=== PATIENT | male | born 1965 | race African-American/Black ===

== ENCOUNTER 2020-07-06 11:56 | Emergency (ER) | payer MEDICARE, OTHER ==
[~2020-07-06] VITALS: Ht 177.8 cm; Wt 75.7 kg
[2020-07-06] MEDS ORDERED: methylPREDNISolone SOD SUCC 125 MG/2 ML VL IV ONE (12:30)
[2020-07-06 12:48] LABS: Lymphocytes # (auto) 1.3 10 ^3/uL (0.4-5.4)
[2020-07-06 13:02] LABS: Basophils # (auto) 0 10 ^3/uL (0-0.2); Basophils % (auto) 0.6 % (0.0-2.0); Eosinophils # (auto) 0.1 10 ^3/uL (0-0.8); Eosinophils % (auto) 1.9 % (0.0-7.0); Hematocrit 51.5 % (41.0-53.0); Hemoglobin 17.4 g/dL (13.5-17.5); Lymphocytes % (auto) 26.8 % (10.0-50.0); Mean Corpuscular Hemoglobin 32.3 pg (28.0-32.0); Mean Corpuscular Hgb Conc. 33.8 g/dL (32.0-36.0); Mean Corpuscular Volume 95.5 fL (80.0-100.0); Monocytes # (auto) 0.5 10 ^3/uL (0-1.3); Monocytes % (auto) 10.3 % (0.0-12.0); Neutrophils % (auto) 60.4 % (37.0-80.0); Platelet Count (auto) 173 10^3/uL (140-450); Red Blood Cells 5.39 10^6/uL (4.5-5.90); Red Cell Distribution Width 13.6 % (11.8-14.3)
[2020-07-06 13:07] LABS: Nucleated Red Blood Cells % 0.2 %
[2020-07-06 13:25] LABS: Albumin 3.9 g/dL (3.4-5.0); Anion Gap 4 (5-15); Blood Urea Nitrogen 9 mg/dL (7-18); Calcium 9.1 mg/dL (8.5-10.1); Carbon Dioxide 24 mmol/L (21-32); Chloride 110 mmol/L (98-107); Glucose 82 mg/dL (74-106); Potassium 4.2 mmol/L (3.5-5.1); Sodium 138 mmol/L (136-145)
[2020-07-06 13:27] LABS: Alanine Aminotransferase 22 U/L (16-61); Aspartate Aminotransferase 13 U/L (15-37); BUN/Creatinine Ratio 8.5; GFR African American 93 mL/min; GFR Non-African American 77 mL/min
[2020-07-06 13:29] LABS: Alkaline Phosphatase 90 U/L (45-117); Bilirubin, Total 0.4 mg/dL (0.2-1.0); Total Protein 8.2 g/dL (6.4-8.2)
[2020-07-06 15:37] VITALS: BP 151/85
== END 2020-07-06 15:50 | disposition home or self-care (01) ==
LOC: ER 11:56
DX: J20.9 Acute bronchitis, unspecified (principal); Z20.828 Contact with and (suspected) exposure to other viral communicable diseases
CPT/HCPCS: 36415; 71045; 80053; 82728; 83605; 84484; 85025; 85379; 86141; 87040; 87426; 93005; 96374; 99285; J2930

== ENCOUNTER 2021-03-12 15:28 | Emergency (ER) | payer MEDICARE, OTHER ==
[~2021-03-12] VITALS: Ht 180.3 cm; Wt 74.8 kg
[2021-03-12 15:29] VITALS: BP 127/73
[2021-03-12 18:47] LABS: Basophils # (auto) 0 10 ^3/uL (0-0.2); Basophils % (auto) 0.6 % (0.0-2.0); Eosinophils # (auto) 0 10 ^3/uL (0-0.8); Eosinophils % (auto) 0.8 % (0.0-7.0); Hematocrit 44.6 % (41.0-53.0); Lymphocytes # (auto) 1.8 10 ^3/uL (0.4-5.4); Lymphocytes % (auto) 34.6 % (10.0-50.0); Mean Corpuscular Hemoglobin 32.9 pg (28.0-32.0); Mean Corpuscular Hgb Conc. 33.6 g/dL (32.0-36.0); Monocytes # (auto) 0.5 10 ^3/uL (0-1.3); Monocytes % (auto) 10.4 % (0.0-12.0); Neutrophils # (auto) 2.8 10 ^3/uL (1.6-8.6); Neutrophils % (auto) 53.6 % (37.0-80.0); Nucleated Red Blood Cells % 0.1 %; Red Blood Cells 4.55 10^6/uL (4.5-5.90); Red Cell Distribution Width 13.1 % (11.8-14.3); White Blood Cell 5.2 10^3/uL (4.4-10.8)
[2021-03-12 19:02] LABS: Albumin 3.7 g/dL (3.4-5.0); Anion Gap 5 (5-15); Blood Urea Nitrogen 14 mg/dL (7-18); Calcium 9.3 mg/dL (8.5-10.1); Carbon Dioxide 25 mmol/L (21-32); Chloride 106 mmol/L (98-107); Glucose 82 mg/dL (74-106); Potassium 4.7 mmol/L (3.5-5.1); Sodium 136 mmol/L (136-145)
[2021-03-12 19:06] LABS: Alanine Aminotransferase 31 U/L (16-61); Alkaline Phosphatase 71 U/L (45-117); Aspartate Aminotransferase 17 U/L (15-37); BUN/Creatinine Ratio 12.7; Bilirubin, Total 0.3 mg/dL (0.2-1.0); GFR African American 89 mL/min; GFR Non-African American 74 mL/min; Total Protein 7.8 g/dL (6.4-8.2)
[2021-03-12] MEDS ORDERED: ONDANSETRON ODT 4 MG TAB PO ONE (20:00)
== END 2021-03-12 21:36 | disposition left against medical advice (07) ==
LOC: ER 15:28
DX: R10.9 Unspecified abdominal pain (principal); K92.1 Melena; Z53.21 Procedure and treatment not carried out due to patient leaving prior to being seen by health care provider
CPT/HCPCS: 36415; 80053; 84484; 85025; Q0162; 93005

== ENCOUNTER 2022-01-23 12:03 | Inpatient (IN) | payer MEDICARE, OTHER ==
[~2022-01-23] VITALS: Ht 180.3 cm; Wt 68.0 kg
[2022-01-23 13:04] LABS: Basophils # (auto) 0.1 10 ^3/uL (0-0.2); Basophils % (auto) 1.1 % (0.0-2.0); Eosinophils # (auto) 0 10 ^3/uL (0-0.8); Eosinophils % (auto) 0.6 % (0.0-7.0); Hematocrit 47.2 % (41.0-53.0); Hemoglobin 15.6 g/dL (13.5-17.5); Lymphocytes # (auto) 1.3 10 ^3/uL (0.4-5.4); Lymphocytes % (auto) 27.1 % (10.0-50.0); Mean Corpuscular Hemoglobin 31.4 pg (28.0-32.0); Mean Corpuscular Hgb Conc. 33.1 g/dL (32.0-36.0); Mean Corpuscular Volume 94.8 fL (80.0-100.0); Monocytes # (auto) 0.3 10 ^3/uL (0-1.3); Neutrophils % (auto) 64.2 % (37.0-80.0); Nucleated Red Blood Cells % 0.2 %; Red Blood Cells 4.98 10^6/uL (4.5-5.90); Red Cell Distribution Width 14.2 % (11.8-14.3); White Blood Cell 4.7 10^3/uL (4.4-10.8)
[2022-01-23 13:18] LABS: Albumin 4.3 g/dL (3.4-5.0); Calcium 9.3 mg/dL (8.5-10.1); Potassium 4.3 mmol/L (3.5-5.1)
[2022-01-23 13:21] LABS: BUN/Creatinine Ratio 10.2; Bilirubin, Total 0.7 mg/dL (0.2-1.0); Total Protein 8.2 g/dL (6.4-8.2)
[2022-01-23] MEDS ORDERED: IPRATROPIUM BROM 0.5 MG/2.5ML INH SOL NEB ONE (16:15)
[2022-01-23] MEDS ORDERED: ALBUTEROL SULF 2.5 MG/0.5ML(0.5%) NEB SOLN NEB ONE (16:15)
[2022-01-23] MEDS ORDERED: methylPREDNISolone SOD SUCC 125 MG/2 ML VL IV ONE (16:15)
[2022-01-23] MEDS ORDERED: ASCORBIC ACID 500 MG TAB PO ONE (17:45)
[2022-01-23] MEDS ORDERED: cefTRIAXone 1GM/50ML D5W 50 ML IV ONE (17:45)
[2022-01-23] MEDS ORDERED: ZINC SULFATE 220mg CAP or TAB PO ONE (17:45)
[2022-01-23] MEDS ORDERED: AZITHROMYCIN 500MG/ 250ML 250 ML IV ONE (17:45)
[2022-01-23] MEDS ORDERED: CHOLECALCIFEROL (VITD3) 2,000 UNIT CAP/TAB PO ONE (17:45)
[2022-01-23 20:26] LABS: Urine Bacteria NONE SEEN /hpf (None Seen); Urine Blood Negative /uL (Negative); Urine Mucus FEW (None Seen); Urine Specific Gravity 1.027 (1.001-1.035); Urine WBC <1 /hpf (0 - 3)
[2022-01-23] MEDS ORDERED: TEMAZEPAM 15 MG CAP PO PRN (21:00)
[2022-01-23] MEDS ORDERED: ALBUTEROL SULF 2.5 MG/0.5ML(0.5%) NEB SOLN NEB PRN (21:00)
[2022-01-23] MEDS ORDERED: NITROGLYCERIN 0.4 MG SL TAB SL PRN (21:00)
[2022-01-23] MEDS ORDERED: ACETAMINOPHEN 325 MG TAB PO PRN (21:00)
[2022-01-23] MEDS: ONDANSETRON HCL 4 MG/2 ML VIAL IV PRN (21:17)
[2022-01-23 21:39] VITALS: BP 126/71
[2022-01-24 04:33] LABS: Basophils # (auto) 0 10 ^3/uL (0-0.2); Basophils % (auto) 0.2 % (0.0-2.0); Eosinophils # (auto) 0 10 ^3/uL (0-0.8); Hematocrit 42.4 % (41.0-53.0); Hemoglobin 14.6 g/dL (13.5-17.5); Lymphocytes # (auto) 0.5 10 ^3/uL (0.4-5.4); Lymphocytes % (auto) 17.1 % (10.0-50.0); Mean Corpuscular Hemoglobin 32.2 pg (28.0-32.0); Mean Corpuscular Hgb Conc. 34.4 g/dL (32.0-36.0); Mean Corpuscular Volume 93.6 fL (80.0-100.0); Monocytes # (auto) 0.1 10 ^3/uL (0-1.3); Monocytes % (auto) 2.5 % (0.0-12.0); Neutrophils # (auto) 2.3 10 ^3/uL (1.6-8.6); Neutrophils % (auto) 80.2 % (37.0-80.0); Nucleated Red Blood Cells % 0.1 %; Red Blood Cells 4.53 10^6/uL (4.5-5.90); Red Cell Distribution Width 14.1 % (11.8-14.3); White Blood Cell 2.9 10^3/uL (4.4-10.8)
[2022-01-24 04:51] LABS: Albumin 3.7 g/dL (3.4-5.0); Potassium 4.2 mmol/L (3.5-5.1)
[2022-01-24 04:56] LABS: BUN/Creatinine Ratio 15.3; Bilirubin, Total 0.8 mg/dL (0.2-1.0); Total Protein 7.6 g/dL (6.4-8.2)
[2022-01-24] MEDS: ASCORBIC ACID 500 MG TAB PO SCH ×3 (05:31→23:01)
[2022-01-24] MEDS: AZITHROMYCIN 500MG/ 250ML 250 ML IV SCH (11:00)
[2022-01-24] MEDS: ZINC SULFATE 220mg CAP or TAB PO SCH (11:01)
[2022-01-24] MEDS: DULoxetine HCL 30 MG CAP PO SCH (11:01)
[2022-01-24] MEDS: DexAMETHasone SOD PHOS 10MG/1ML VIAL INJ IV SCH (11:01)
[2022-01-24] MEDS: ENOXAPARIN SOD 40 MG/0.4 ML SYRINGE SC SCH (11:01)
[2022-01-24] MEDS: MULTIPLE VITAMIN TAB PO SCH (11:01)
[2022-01-24] MEDS: HYDROcodone-ACET 5/325MG TAB PO PRN ×2 (14:05→23:02)
[2022-01-24] MEDS ORDERED: TRAM-300 PO (18:36)
[2022-01-24] MEDS ORDERED: OXY5T GT (18:36)
[2022-01-24] MEDS ORDERED: DULO20CA PO (18:36)
[2022-01-24] MEDS: MORPHINE SULFATE INJ 2 MG/ml SYRG IV PRN ×2 (20:22→21:01)
[2022-01-24] MEDS: ONDANSETRON HCL 4 MG/2 ML VIAL IV PRN (20:28)
[2022-01-24 22:45] VITALS: BP 162/86
[2022-01-24] MEDS ORDERED: cloNIDine HCL 0.1 MG TAB PO ONE (23:00)
[2022-01-25 00:50] VITALS: BP 135/72
[2022-01-25] MEDS ORDERED: OXYC20TA69 PO (04:26)
[2022-01-25] MEDS ORDERED: TRAM50TA2 PO (04:26)
[2022-01-25] MEDS ORDERED: IBUP-1310 PO (04:26)
[2022-01-25] MEDS ORDERED: METH750T22 PO (04:26)
[2022-01-25] MEDS ORDERED: QUET300T24 PO (04:26)
[2022-01-25] MEDS ORDERED: DULO-141 PO (04:26)
[2022-01-25 05:00] VITALS: BP 134/84
[2022-01-25] MEDS: HYDROcodone-ACET 5/325MG TAB PO PRN ×2 (05:02→12:25)
[2022-01-25 06:07] LABS: Basophils # (auto) 0 10 ^3/uL (0-0.2); Basophils % (auto) 0.7 % (0.0-2.0); Eosinophils # (auto) 0 10 ^3/uL (0-0.8); Eosinophils % (auto) 0.2 % (0.0-7.0); Hematocrit 44.6 % (41.0-53.0); Hemoglobin 15.2 g/dL (13.5-17.5); Lymphocytes # (auto) 1.6 10 ^3/uL (0.4-5.4); Lymphocytes % (auto) 25.7 % (10.0-50.0); Mean Corpuscular Hemoglobin 32.1 pg (28.0-32.0); Mean Corpuscular Volume 94.3 fL (80.0-100.0); Monocytes # (auto) 0.5 10 ^3/uL (0-1.3); Monocytes % (auto) 8.3 % (0.0-12.0); Neutrophils % (auto) 65.1 % (37.0-80.0); Red Blood Cells 4.74 10^6/uL (4.5-5.90); Red Cell Distribution Width 13.7 % (11.8-14.3); White Blood Cell 6.1 10^3/uL (4.4-10.8)
[2022-01-25 06:28] LABS: INR 1.16 (0.9-1.15)
[2022-01-25 06:29] LABS: Potassium 4.9 mmol/L (3.5-5.1)
[2022-01-25 06:34] LABS: BUN/Creatinine Ratio 17.8; CRP High Sensitivity 0.02 mg/dL (< 0.3); Calcium 9.1 mg/dL (8.5-10.1); Magnesium 2.5 mg/dL (1.6-2.6)
[2022-01-25] MEDS ORDERED: hydrALAZINE HCL 20 MG/ML VL IV PRN (09:30)
[2022-01-25] MEDS ORDERED: LISINOPRIL 20 MG TAB PO SCH (10:00)
[2022-01-25] MEDS ORDERED: CHOLECALCIFEROL (VITD3) 2,000 UNIT CAP/TAB PO SCH (10:00)
[2022-01-25] MEDS: AZITHROMYCIN 500MG/ 250ML 250 ML IV SCH (10:34)
[2022-01-25] MEDS: DexAMETHasone SOD PHOS 10MG/1ML VIAL INJ IV SCH (10:36)
[2022-01-25] MEDS: ENOXAPARIN SOD 40 MG/0.4 ML SYRINGE SC SCH (10:38)
[2022-01-25] MEDS: MULTIPLE VITAMIN TAB PO SCH (10:41)
[2022-01-25] MEDS: DULoxetine HCL 30 MG CAP PO SCH (10:42)
[2022-01-25] MEDS: ASCORBIC ACID 500 MG TAB PO SCH (10:42)
[2022-01-25] MEDS: ZINC SULFATE 220mg CAP or TAB PO SCH (10:42)
[2022-01-25] MEDS ORDERED: ZINC220T6 PO (12:28)
[2022-01-25] MEDS ORDERED: ASCO100076 PO (12:28)
[2022-01-25] MEDS ORDERED: ALBUAER3 IN (12:28)
[2022-01-25] MEDS ORDERED: CHOL20007 PO (12:28)
[2022-01-25] MEDS ORDERED: AZIT500T PO (12:28)
[2022-01-25 13:00] VITALS: BP 135/83
[2022-01-25 16:04] VITALS: BP 130/76
== END 2022-01-25 16:30 | disposition home or self-care (01) | DRG 179 ==
LOC: ER 12:03 → TELE 20:57 → TELE-CENTR 01-24 22:40
PROVIDERS: ADMIT Nurse Practitioner; ATTEND Internal Medicine
DX: U07.1 COVID-19 (principal); F32.A Depression, unspecified; R06.03 Acute respiratory distress; J45.909 Unspecified asthma, uncomplicated; G89.29 Other chronic pain; Z82.49 Family history of ischemic heart disease and other diseases of the circulatory system; Z90.49 Acquired absence of other specified parts of digestive tract
CPT/HCPCS: 36415; 71045; 71250; 80048; 80053; 80061; 81001; 82306; 82728; 83036; 83605; 83615; 83735; 83880; 84443; 84484; 85025; 85379; 85610; 85652; 86141; 87804; 93005; 94640; 96365; 96366; 96367; 96375; G0378; J0696; J1100; J2405